=== PATIENT | male | born 1955 | race Caucasian/White ===

== ENCOUNTER → 2023-02-08 12:43 | Outpatient (CLI) | payer MEDICARE, SELFPAY ==
--- NOTE | ~2023-02-08 | XR_ITS ---
Clinical Indication: Cough PA and lateral views of the chest: Comparison: None Findings: The lungs are clear, without evidence of focal consolidation or pleural effusion. Cardiome diastinal silhouette is within normal limits. Bones and soft tissues are unremarkable. Impression: Normal chest. Reviewed, dictated and finalized at location . TARY PAY CLERK Impression: Normal chest.
== END ==
PROVIDERS: PCP Physician Assistant; Visit Provider Physician Assistant
DX: R05.9 Cough, unspecified (principal); R09.81 Nasal congestion
CPT/HCPCS: 71046

== ENCOUNTER 2024-12-20 08:18 | Outpatient (CLI) | payer MEDICARE, SELFPAY ==
--- NOTE | ~2024-12-20 | US_ITS ---
EXAMINATION: US art doppler giuseppe MEJIA DATE: 12/20/2024 09:11 INDICATION: Peripheral vascular disease TECHNIQUE: Segmental pressures and plethysmographic and Doppler waveforms of the brachial and lower extremity arteries were obtained. COMPARISON: None. FINDINGS: Right and left brachial artery pressures of 130 mm Hg and 130 mm Hg, respectively, are concordant (normal difference <= 30 mmHg). The right ankle-brachial index (CHASE) is 0.87 (normal >= 0.9-1). The right great toe-brachial index (TBI) is 0.68 (normal >= 0.6-0.8). The right lower extremity segmental pressure gradients are normal (normal gradients <= 20-30 mmHg between adjacent levels on the same leg or the same levels on the two legs). Arterial waveforms are biphasic with brisk systolic upstrokes throughout the arteries of the right lower limb. The left CHASE is 0.98. The left TBI is 0.57. The left lower extremity segmental pressure gradients are normal. Arterial waveforms are biphasic with brisk systolic upstrokes throughout the arteries of the left lower limb. IMPRESSION: 1. Mild arterial occlusive disease to bilateral lower limbs with mildly decreased bilateral ABIs and TBIs. Reviewed, dictated and finalized at location A. IMPRESSION: 1. Mild arterial occlusive disease to bilateral lower limbs with mildly decreas ed bilateral ABIs and TBIs.
--- OUTSIDE RECORDS SUMMARY | 2024-12-20 08:24 | XMS_ITS | Encounter Summary ---
Author Organization [facility] Healthcare Address [address] [place] [address] Care Team Providers Care Data Virtualization Consultant Name Role Phone Zenia Ruelas Primary Care Provider [phone] Jackie Golden MD Unavailable [phone] Raj Sylvester MD Unavailable [phone] Nidhi Shannon Unavailable [phone] Encounter Details Date Type Department Care Team (Late st Contact Info) Description 12/23/2021 Telephone [facility] Cardiac Oil Heater Installer [address] [place] [address] Tammy Apodaca, MONAE Social History Tobacco Use Types Packs/Day Years Used Date Smoking Tobacco: Never Smokeless Tobacco: Never Alcohol Use Standard Drinks/Week Comments Yes 0 (1 standard drink = 0.6 oz pur e alcohol) AUDIT-C Answer Date Recorded Q1: How often do you have a drink containing alc ohol? 2-4 times a month 11/04/2021 Q2: How many drinks containi ng alcohol do you have on a typical day when you are drinking? 1 or 2 11/04/2021 Q3: How often do you have si x or more drinks on one occasion? 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 Not on file Not on file documented as of this encounter Plan of Treatment Upcoming Encounters Date Type Department Care Team (Late st Contact Info) Description 05/01/2025 9:30 AM PRINTING SCREEN ASSEMBLER Hospital Encounter [facility] [address] [place] [address] Gabbie Sellers MD [address] [place] [address] [id number] 05/01/2025 9:30 AM PRINTING SCREEN ASSEMBLER - 05/01/2025 10:00 AM PRINTING SCREEN ASSEMBLER Surgery [facility] [address] [place] [address] Gabbie Sellers MD [address] [place] [phone] COLONOSCOPY Scheduled Procedures Name Priority Associated Diagnoses Date/Ti me COLONOSCOPY hx of polyps 05/01/2025 9:30 AM PRINTING SCREEN ASSEMBLER documented as of this encounter Visit Diagnoses Not on filedocumented in this encounter Care Teams Data Virtualization Consultant Relationship Specialty Start Date End Date Zenia Ruelas PA [address] [place] [address] PCP - General Internal Medicine 09/03/18 Jackie Golden MD [address] [place] [address] Referring Physician Internal Medicine 11/10/18 Raj Sylvester [place] [address] Consulting Physician Otolaryngology 07/08/22 Nidhi Shannon, DYLONE [address] [place] [address] [address] [place] [address] Psychologist Personnel 09/23/22 11/06/22 documented as of this encounter
--- OUTSIDE RECORDS SUMMARY | 2024-12-20 08:24 | XMS_ITS | Encounter Summary ---
Author Organization [facility] Care Team Providers Care Glass Belt Sander Name Role Phone Zenia Ruelas Primary Care Provider [phone] Jackie Golden MD Unavailable [phone] Raj Sylvester MD Unavailable [phone] Nidhi Shannon Unavailable [phone] Encounter Details Date Type Department Care Team (Latest Contact Info) Description 12/14/2016 Orders Only [facility]INCON[facility] Provider, MD Mando [address] [place], [place] [id number] Social History Tobacco Use Types Packs/Day Years Used Date Smoking Tobacco: Never Assessed Sex and Gender Information Value Date Recorded Sex Assigned at Not on file Legal Sex Male 12:26 AM ENGINE LATHE OPERATOR Gender Identity Not on file Sexual Orientation Not on file documented as of this encounter Plan of Treatment Upcoming Encounters Date Type Department Care Team (Late st Contact Info) Description 05/01/2025 9:30 AM ENGINE LATHE OPERATOR Hospital Encounter [facility] [address] [place] [address] Gabbie Sellers MD [address] [place] [id number] 05/01/2025 9:30 AM ENGINE LATHE OPERATOR - 05/01/2025 10:00 AM ENGINE LATHE OPERATOR Surgery [facility] [address] [place] [address] Gabbie Sellers MD [facility] [address] [address] COLONOSCOPY Scheduled Procedures Name Priority Associated Diagnoses Date/Ti me COLONOSCOPY hx of polyps 05/01/2025 9:30 AM ENGINE LATHE OPERATOR documented as of this encounter Procedures Procedure Name Priority Date/Time Associated Diagnosis Comments COLONOSCOPY - SCAN 05/02/2018 12 :00 AM ENGINE LATHE OPERATOR documented in this encounter Results * COLONOSCOPY - SCAN (05/02/2018 12:00 AM ENGINE LATHE OPERATOR) Narrative 05/02/2018 12:00 AM ENGINE LATHE OPERATOR Ordered by an unspecified provider. us Historical Provider Final Res ult documented in this encounter Visit Diagnoses Not on filedocumented in this encounter Care Teams Glass Belt Sander Relationship Specialty Start Date End Date Zenia Ruelas PA [address] [place] [address] PCP - General Internal Medicine 09/03/18 Jackie Golden MD [address] [place] [address] Referring Physician Internal Medicine 11/10/18 [place] [address] Consulting Physician Otolaryngology 07/08/22 Nidhi Shannon, DYLONE [address] [place] [address] [employer] Truck Driver 09/23/22 11/06/22 documented as of this encounter
--- OUTSIDE RECORDS SUMMARY | 2024-12-20 08:24 | XMS_ITS | Encounter Summary ---
Author Organization [facility] Address [address] [facility] [address] [place] [address] Phone Care Team Providers Care Insulation Batting Machine Operator Name Role Phone Zenia Ruelas Primary Care Provider [phone] Jackie Golden MD Unavailable [phone] Raj Sylvester MD Unavailable [phone] Encounter Details Date Type Department Care Team (Late st Contact Info) Description 12/10/2024 Results Follow-Up [facility] [facility] [address] [place] [address] Tyrese Rivera, WATER FILTER CLEANER [address] [facility] [phone] [place] [address] MRI Pelvis Prostate W WO Contrast Social History Tobacco Use Types Packs/Day Years Used Date Smoking Tobacco: Never Smokeless Tobacco: Never Alcohol Use Standard Drinks/Week Comments Yes 0 (1 standard drink = 0.6 oz pur e alcohol) AUDIT-C Answer Date Recorded Q1: How often do you have a drink containing alc ohol? Monthly or less 08/30/2024 Q2: How many drinks containi ng alcohol do you have on a typical day when you are drinking? 1 or 2 08/30/2024 Q3: How often do you have si x or more drinks on one occasion? Less than monthly 08/30/2024 PHQ-2 Answer Date Recorded PHQ-2 Total Score (If total score is 3 or more points, staff should administer the PHQ-9) 0 08/30/2024 Personal Safety Answer Date Recorded Have you ever been in or are you currently in a harmful physical or emotional relationship or is someone making you feel afraid or unsafe? 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 Not on file Not on file documented as of this encounter Plan of Treatment Upcoming Encounters Date Type Department Care Team (Late st Contact Info) Description 05/01/2025 9:30 AM AUTOMOTIVE MANUFACTURER Hospital Encounter [facility] [address] [place] [address] Gabbie Sellers MD [address] [place] [id number] 05/01/2025 9:30 AM AUTOMOTIVE MANUFACTURER - 05/01/2025 10:00 AM AUTOMOTIVE MANUFACTURER Surgery [facility] [address] [place] [address] Gabbie Sellers MD [address] [place] [address] [phone] COLONOSCOPY Scheduled Procedures Name Priority Associated Diagnoses Date/Ti me COLONOSCOPY hx of polyps 05/01/2025 9:30 AM AUTOMOTIVE MANUFACTURER documented as of this encounter Visit Diagnoses Not on filedocumented in this encounter Care Teams Insulation Batting Machine Operator Relationship Specialty Start Date End Date Zenia Ruelas PA [address] [place] [address] PCP - General Internal Medicine 09/03/18 Jackie Golden MD [address] [place] [address] Referring Physician Internal Medicine 11/10/18 [place] [address] Consulting Physician Otolaryngology 07/08/22 documented as of this encounter
--- OUTSIDE RECORDS SUMMARY | 2024-12-20 08:25 | XMS_ITS | Clinical Summary ---
Author Organization [facility] [address] [facility] Address [address] [place] [address] Care Team Providers Care Housekeeper Child Care Name Role Phone Zenia Ruelas Primary Care Provider [phone] Jackie Golden MD Unavailable [phone] Raj Sylvester MD Unavailable [phone] Allergies No known active allergies Medications pen needle, diabetic 31 gauge x 5/16 needle 0 Active FreeStyle Lite Strips strip USE 1 STRIP TO CHECK GLUCOSE THREE TIMES DAILY 1 Active FreeStyle Teresa 2 Sensor kit REPLACE EVERY 14 DAYS 2 Active empagliflozin (JARDIANCE) 25 mg tablet Take 1 tablet (25 mg total) by mouth nightly Active triamcinolone (KENALOG) 0.5 % cream Apply topically 3 (three) times a day 30 g 2 3 Active turmeric root extract 500 mg capsule Take by mouth Active vitamin E 400 unit capsule Take 1 capsule (400 Units total) by mouth Active cholecalciferol (VITAMIN D-3) 2000 unit tablet Active zinc sulfate 50 mg zinc (220 mg) tablet Take 1 tablet (220 mg total) by mouth daily Active omega-3 fatty acids-fish oil 300-1,000 mg capsule Take 2 capsules (2 g total) by mouth daily Active albuterol HFA (PROVENTIL HFA,VENTOLIN HFA,PROAIR HFA) 90 mcg/actuation inhaler Inhale 2 puffs every 6 (six) hours as needed for wheezing 1 each 3 Active metoprolol XL (TOPROL-XL) 25 mg extended release tabletIndications: Persistent atrial fibrillation (HCC),Other fatigue,BMI 40.0-44.9, adult (HCC),Type 2 diabetes mellitus with hyperglycemia, with long-term current use of insulin (HCC),Localized edema,COVID-19 Take 1 tablet (25 mg total) by mouth daily 90 tablet 4 Active rivaroxaban (Xarelto) 20 mg tabletIndications: Persistent atrial fibrillation (HCC) Take 1 tablet (20 mg total) by mouth daily 90 tablet 4 Active losartan (COZAAR) 25 mg tabletIndications: Type 2 diabetes mellitus with hyperglycemia, with long-term current use of insulin (HCC) TAKE 1 TABLET(25 MG) BY MOUTH DAILY 90 tablet 1 4 Active ascorbic acid, vitamin C, (VITAMIN C) 500 mg CR tablet Take 1 tablet (500 mg total) by mouth every other day Active semaglutide (Ozempic) 1 mg/dose (4 mg/3 mL) pen injector injection Inject 1 mg under the skin Active omeprazole (PriLOSEC) 40 mg capsule Take 1 capsule (40 mg total) by mouth daily 30 capsule 11 5 026 Active FreeStyle Teresa 3 Plus Sensor device CHANGE EVERY 15 DAYS 5 Active FreeStyle Teresa 3 [place] misc USE TO MONITOR BLOOD SUGAR 5 Active insulin lispro (HumaLOG) 100 unit/mL pen for injection ADMINISTER 6 UNITS UNDER THE SKIN THREE TIMES DAILY BEFORE MEALS Active metFORMIN (GLUCOPHAGE) 1,000 mg tablet Take 1 tablet (1,000 mg total) by mouth 5 Active tamsulosin (FLOMAX) 0.4 mg extended release capsule Take 1 capsule (0.4 mg total) by mouth daily 90 capsule 3 5 026 Active rosuvastatin (CRESTOR) 10 mg tabletIndications: Type 2 diabetes mellitus with hyperlipidemia (HCC) TAKE 1 TABLET(10 MG) BY MOUTH DAILY 100 tablet 1 5 Active furosemide (LASIX) 20 mg tabletIndications: Persistent atrial fibrillation (HCC) TAKE 1 TABLET(20 MG) BY MOUTH DAILY 100 tablet 1 5 Active Active Problems Problem Noted Date Diagnosed Date Non-ischemic cardiomyopathy 09/08/2024 Medicare annual wellness visit, subsequent 03/10 Assessment & Plan (03/10/2024 8:01 PM HAT MENDER): Encouraged healthy lifestyle, good nutrition and exercise. Encouraged Calcium and Vitamin D and weight bearing exercise for bone health. Reviewed immunizations. Reviewed age appropirate screenings. Medicare Wellness Documentation is completed within the chart Morbid obesity 03/10/2024 Assessment & Plan (08/30/2024 6:57 AM CDT): Discussed the patient's BMI. The BMI is above average. BMI management plan is completed. BMI Follow-up includes: nutrition counseling, exercise counseling and education provided. Assessment & Plan (03/10/2024 8:00 PM HAT MENDER): Discussed the patient's BMI. The BMI is above average. BMI management plan is completed. BMI Follow-up includes: nutrition counseling, exercise counseling and education provided. Permanent atrial fibrillation 04/17/2023 Assessment & Plan (03/10/2024 7:59 PM HAT MENDER): Patient has atrial fibrillation. Follows with Dr. Aguilar Is on Xarelto and metoprolol for rate control. History of CHF. He is also on losartan and daily Lasix and seems to be compensated. Assessment & Plan (07/17/2023 12:46 PM CDT): Continue per Cardiology. Continue anticoagulation with Xarelto and metoprolol XL 25 for rate control Chronic combined systolic an d diastolic congestive heart failure 04/17/2023 Assessment & Plan (03/10/2024 7:59 PM HAT MENDER): Patient has atrial fibrillation. Follows with Dr. Aguilar Is on Xarelto and metoprolol for rate control. History of CHF. He is also on losartan and daily Lasix and seems to be compensated. Assessment & Plan (07/17/2023 12:46 PM CDT): Continue per Dr. Aguilar. He appears compensated today. Continue to manage blood pressure with losartan 25 metoprolol XL 25. Continue to monitor for weight gain and if has more than 3-5 lb he is to call for further evaluation Anticoagulation management encounter 02/07/2023 Assessment & Plan (02/07/2023 10:57 PM HAT MENDER): Encouraged healthy lifestyle, good nutrition and exercise. Encouraged Calcium and Vitamin D and weight bearing exercise for bone health. Reviewed immunizations. Reviewed age appropirate screenings. Medicare Wellness Documentation is completed within the chart BMI 39.0-39.9,adult 01/20/2023 Assessment & Plan (08/30/2024 6:58 AM CDT): Discussed the patient's BMI. The BMI is above average. BMI management plan is completed. BMI Follow-up includes: nutrition counseling, exercise counseling and education provided. LA thrombus 10/14/2022 Chronic eczematous otitis externa of left ear Assessment & Plan (07/17/2023 12:45 PM CDT): Continue with drops as indicated by ENT Assessment & Plan (08/09/2022 6:55 PM CDT): I think he would benefit from using Kenalog cream in his left ear every night. That should allow him to have less inflammation and swelling. I also recommend that he stop using Q-tips because that is only aggravating this situation. He does have eczema I explained. It is a chronic condition and probably will never completely go away. He understands that. I also felt he go ahead and start wearing his hearing aids any time. He will see me if he has any further problems. DELVIS (obstructive sleep apnea) 12/03/2021 Assessment & Plan (07/01/2024 8:57 AM CDT): Patient continue to wear his CPAP at 14 cm water pressure while sleeping. His DME is [facility] Assessment & Plan (03/10/2024 7:59 PM HAT MENDER): Continue CPAP. States has all needed supplies. Managed by Dr. Nash Assessment & Plan (07/17/2023 12:45 PM CDT): Continue with CPAP per Dr. Nash Assessment & Plan (06/23/2023 9:53 AM CDT): Due to continued symptoms, the patient will continue CPAP at 14 cm water pressure. Denied need for supplies. DME [facility] Assessment & Plan (02/07/2023 10:57 PM HAT MENDER): Continue per Dr. Nash. Continue CPAP nightly Assessment & Plan (07/09/2022 9:24 PM CDT): Continue per Dr. Nash. Continue with CPAP. Has needed supplies Assessment & Plan (06/24/2022 9:09 AM CDT): The patient will continue with CPAP therapy at 14 cm of water pressure. Denied need for supplies. DME [employer] Assessment & Plan (02/06/2022 9:52 PM HAT MENDER): Continue per Dr. Nash. Using his CPAP. Settings were adjusted and seems to be doing better Assessment & Plan (12/30/2021 1:40 PM CDT): Due to the slightly high AHI and the patient stating he does not have enough pressure in her machine, I have increased the pressure to 14 cm water pressure. Denied need for supplies. [facility]NA [facility] Abnormal stress test 10/22/2021 Colon adenoma 08/30/2021 Assessment & Plan (07/17/2023 12:45 PM CDT): Last colonoscopy was in March [address] Sellers. More adenomas were noted so patient states will need to repeat in mid 2024 Assessment & Plan (07/09/2022 9:23 PM CDT): Patient with history of adenomas. Due to repeat colonoscopy. Has already met with Dr. Sellers. Needs to call her office to get rescheduled. Assessment & Plan (08/30/2021 11:42 AM CDT): Last colonoscopy was in [address] Angel. Had a colon adenoma so is due to repeat in 2021. Prefers to keeping the [facility] system so will refer to Dr. Sellers so this can be done at [facility] Chronic midline low back pain without sciatica 0 08/30/2021 Assessment & Plan (08/30/2021 12:11 PM CDT): Encouraged Tylenol as he is on AC for Afib Topical preparations like Lidocaine patches, Biofreeze, ICYHOT etc as needed. Heat, stretching Avoid long periods of sitting/laying. Encouraged PT but he declines due to cost. Followup if has any problems controlling bowels or bladder or if sxs worsen. History of COVID-19 07/04/2020 Overview (07/04/2020): Positive approx 06/08 by a test done by his daughter as she is a pathology laboratory aides teacher. Assessment & Plan (07/04/2020 10:44 PM CDT): Patient positive COVID so should quarantine for 10 days since onset of sxs. Stressed him going to work, even masked is not following CDC guidelines and can increase his rate of transmission to coworkers/others. Treat sxs with Tylenol, Cough/cold medication otc and add VitD 5,000IU daily and Zinc 50mg daily. Monitor sxs and call or go to the ER if has any of the following: --trouble breathing --persistent pain or pressure in the chest --new confusion --inability to wake or stay awake -- bluish lips or face If patient has been in close contact with anyone, they should be notified and instructed to quarantine per CDC guidelines for 14 days after last exposure to the positive COVID patient and monitor closely for symptoms of COVID. If they appear they should be tested. Close contact includes: --You were within 6 feet of someone who has COVID-19 for a total of 15 minutes or more --You provided care at home to someone who is sick with COVID-19 --You had direct physical contact with the person (hugged or kissed them) --You shared eating or drinking utensils --They sneezed, coughed, or somehow got respiratory droplets on you Additional Steps to avoid exposure/spread include: Avoid crowded places where close contact with others may occur, such as shopping centers, movie theaters, dormitories, or stadiums. Avoid transit where close contact with others may occur, such as planes, trains, and buses. Maintain a distance of approximately 6 feet from other people whenever possible (spacing out if you are in a line, leaving 2 seats in between others at a waiting room when possible). Wash your hands with soap and water often. If needed, use a hand telecommunications project manager that contains at least 60% alcohol. Clean and disinfect frequently touched surfaces such as tables, doorknobs, countertops, etc daily. Avoid touching your eyes, nose, and mouth when possible. Seasonal allergies 05/23/2020 Assessment & Plan (08/30/2021 12:11 PM CDT): Continue flonase and prn antihhistamine Assessment & Plan (05/23/2020 8:41 PM HAT MENDER): STOP Afrin. Use Flonase, antihistamine and mucinex prn. Type 2 diabetes mellitus with hyperlipidemia 01/2020 Assessment & Plan (03/10/2024 7:58 PM HAT MENDER): Stressed importance of continued A1c control to minimize the terminal system operator effects of diabetes. Bring accuchecks to office when instructed to do so. Check A1c about every 3-6 months. Take medication as prescribed. Get annual eye exam. Encouraged ILIA/Statin if able to tolerate. Encouraged weight control and encouraged diabetic diet and exercise. Encouraged patient to follow low fat/low chol diet like the Mediterranean diet. Increase good fats in the diet. Increase exercise. Monitor labs as needed. Diabetes is managed by adobe maker -- [facility] Currently on metformin Jardidean Vaughan and Humalog. Will request labs from [facility] so we can make it part of his record here. Continue Crestor 10 Assessment & Plan (07/17/2023 12:45 PM CDT): Stressed importance of continued A1c control to minimize the terminal system operator effects of diabetes. Bring accuchecks to office when instructed to do so. Check A1c about every 3-6 months. Take medication as prescribed. Get annual eye exam. Encouraged ILIA/Statin if able to tolerate. Encouraged weight control and encouraged diabetic diet and exercise. Encouraged patient to follow low fat/low chol diet like the Mediterranean diet. Increase good fats in the diet. Increase exercise. Monitor labs as needed. Continue per endocrinology at [facility]. Assessment & Plan (02/07/2023 10:54 PM HAT MENDER): Encouraged patient to follow low fat/low chol diet like the Mediterranean diet. Increase good fats in the diet. Increase exercise. Monitor labs as needed. Continue Crestor 10 Assessment & Plan (07/09/2022 9:23 PM CDT): Encouraged patient to follow low fat/low chol diet like the Mediterranean diet. Increase good fats in the diet. Increase exercise. Monitor labs as needed. Continue statin Assessment & Plan (02/06/2022 9:50 PM HAT MENDER): Encouraged patient to follow low fat/low chol diet like the Mediterranean diet. Increase good fats in the diet. Increase exercise. Monitor labs as needed. Continue Crestor 10 Assessment & Plan (08/30/2021 11:29 AM CDT): Encouraged patient to follow low fat/low chol diet like the Mediterranean diet. Increase good fats in the diet. Increase exercise. Monitor labs as needed. Continue Crestor Assessment & Plan (07/17/2021 2:06 PM CDT): Encouraged patient to follow low fat/low chol diet like the Mediterranean diet. Increase good fats in the diet. Increase exercise. Monitor labs as needed. Continue crestor Assessment & Plan (05/28/2021 11:19 PM CDT): Encouraged patient to follow low fat/low chol diet like the Mediterranean diet. Increase good fats in the diet. Increase exercise. Monitor labs as needed. Continue Crestor Assessment & Plan (11/23/2020 10:54 AM CDT): Encouraged patient to follow fat/low chol diet like the Mediterranean diet. Increase good fats in the diet. Increase exercise. Monitor labs as needed. Continue statin Assessment & Plan (05/23/2020 8:36 PM HAT MENDER): Encouraged patient to follow fat/low chol diet like the Mediterranean diet. Increase good fats in the diet. Increase exercise. Monitor labs as needed. Continue with crestor Assessment & Plan (11/22/2019 6:38 PM CDT): Encouraged patient to continue low fat/low chol diet. Continue exercise. Increase good fats in the diet. Monitor labs as needed. Continue crestor Tinea pedis 11/10/2018 Elevated PSA 11/10/2018 Overview (11/10/2018): Referred to Dr. Alexander in 08/2017. Instructed to repeat the PSA and if elevated a second time, will need biospy Assessment & Plan (03/10/2024 7:58 PM HAT MENDER): Patient with a history of elevated PSA. He had been following with but has chosen to not follow-up because he was not happy with the idea of having to have a TURP. Strongly encouraged him to follow-up and discussed concerns with Assessment & Plan (07/17/2023 12:44 PM CDT): Encouraged to continue following with Dr. Alexander at [facility]. Advised and elevated PSA can be connected to cancer and we do not want to just ignore this. Also advised with his BPH he could get to the point where he is unable to urinate and if that would happen he would need to go to the ER. He verbalizes understanding Assessment & Plan (07/09/2022 9:23 PM CDT): Strongly encouraged him to continue to follow with Dr. Alexander, urology. Encouraged to follow as this is the only way to know if there is any type of progression towards cancer versus other etiology. Assessment & Plan (08/30/2021 11:29 AM CDT): Request records from Dr. Alexander as patient states he no longer needs follow-up and has had elevated PSA. Assessment & Plan (05/23/2020 8:40 PM HAT MENDER): Continue per Dr. Alexander. Assessment & Plan (01/20/2020 8:13 AM HAT MENDER): Referred to Dr. Alexander in 08/2017. Instructed to repeat the PSA and if elevated a second time, will need biospy Was elevated in 2018 and instructed to return to Dr. Alexander but patient never followed up. Will provide order to recheck the PSA again and my staff will make appointment for him with Dr. Alexander (02/19 at 10:15). I cc:ed Dr. Alexander with the [facility] results. Reviewed with patient the importance of keeping this followup to determine the cause of his sxs/elevated PSA which could be a cancer and the not keeping appointments can delay the diagnosis and contribute to a poor/er outcome. Assessment & Plan (05/19/2019 3:06 PM CDT): Provided Dr. Alexander name again for him to contact to followup. Reviewed importance of followup to make definitive dx/treatment plan. Assessment & Plan (11/18/2018 11:38 PM CDT): This is a significant, separately identifiable problem that was evaluated and managed on the same day as the wellness exam Recheck PSA and if still elevated. Return back to Dr. Alexander. Metabolic syndrome 05/25/2018 Assessment & Plan (05/19/2019 3:04 PM CDT): DM managed by Endocrine. Stressed importance of managing all aspects of the metaboilic syndrome including DM, HTN, obesity, DELVIS, vit D, DELVIS, lipids etc. Assessment & Plan (11/18/2018 11:35 PM CDT): Encouraged to control all the comorbidities Candidate for statin therapy due to risk of future cardiovascular event 04/17/2017 Assessment & Plan (11/23/2020 10:53 AM CDT): Continue statin. Encouraged patient to follow fat/low chol diet like the Mediterranean diet. Increase good fats in the diet. Increase exercise. Monitor labs as needed. Assessment & Plan (05/23/2020 8:37 PM HAT MENDER): Continue crestor Assessment & Plan (11/18/2018 11:35 PM CDT): Continue Crestor. Tolerating well. Encouraged patient to continue low fat/low chol diet. Continue exercise. Increase good fats in the diet. Monitor labs as needed. Other chronic pain 03/07/2017 Decreased hearing 03/07/2017 Assessment & Plan (11/22/2019 6:38 PM CDT): Continue per audiology regarding hearing aids Assessment & Plan (11/18/2018 11:34 PM CDT): No change Resolved Problems Problem Noted Date Diagnosed Date Resolved Date BMI 40.0-44.9, adult 03/01/2024 025 Assessment & Plan (03/01/2024 8:44 AM HAT MENDER): Discussed the patient's BMI. The BMI is above average. BMI management plan is completed. BMI Follow-up includes: nutrition counseling, exercise counseling and education provided. Viral upper respiratory tract infection 02/07/2023 07/17/2023 Assessment & Plan (02/07/2023 10:54 PM HAT MENDER): Encouraged supportive care. Push fluids. Rest. Reviewed that most viral conditions may have sxs that last for 10-14 days. If sxs worsen or don\'t fully resolve, pt is to followup in the office. Impacted cerumen of left ear 08/09/2022 07/17/2023 Assessment & Plan (08/09/2022 6:54 PM CDT): This was removed without Difficulty and he tolerated it without any problems. Will see as needed for this. I told him to avoid Q-tips. Obesity, morbid, BMI 40.0-49.9 07/08/2022 03/10/2024 Assessment & Plan (03/01/2024 8:44 AM HAT MENDER): Discussed the patient's BMI. The BMI is above average. BMI management plan is completed. BMI Follow-up includes: nutrition counseling, exercise counseling and education provided. Assessment & Plan (07/17/2023 12:46 PM CDT): Discussed the patient's BMI. The BMI is above average. BMI management plan is completed. BMI Follow-up includes: nutrition counseling, exercise counseling and education provided. Assessment & Plan (01/20/2023 8:23 AM HAT MENDER): Discussed the patient's BMI. The BMI is above average. BMI management plan is completed. BMI Follow-up includes: nutrition counseling, exercise counseling and education provided. Assessment & Plan (07/08/2022 8:08 AM CDT): Discussed the patient's BMI. The BMI is above average. BMI management plan is completed. BMI Follow-up includes: nutrition counseling, exercise counseling and education provided. Morbid obesity 07/08/2022 07/17/2023 Assessment & Plan (01/20/2023 8:23 AM HAT MENDER): Discussed the patient's BMI. The BMI is above average. BMI management plan is completed. BMI Follow-up includes: nutrition counseling, exercise counseling and education provided. Assessment & Plan (07/08/2022 8:08 AM CDT): Discussed the patient's BMI. The BMI is above average. BMI management plan is completed. BMI Follow-up includes: nutrition counseling, exercise counseling and education provided. Preop cardiovascular exam 02/06/2022 Assessment & Plan (02/06/2022 9:52 PM HAT MENDER): Encouraged healthy lifestyle, good nutrition and exercise. Encouraged Calcium and Vitamin D and weight bearing exercise for bone health. Reviewed immunizations. Reviewed age appropirate screenings. Medicare Wellness Documentation is completed within the chart JONES (dyspnea on exertion) 10/22/2021 Morbid obesity with BMI of 45.0-49.9, adult 08/30/2021 01/03/2022 Assessment & Plan (08/30/2021 11:42 AM CDT): Obesity is unchanged. Discussed the patient's BMI. The BMI is above average. BMI management plan is completed. BMI Follow-up includes: nutrition counseling, exercise counseling and education provided. Hypersomnia, unspecified 07/19/2021 Assessment & Plan (07/19/2021 9:37 AM CDT): I did order a nocturnal polysomnogram split night protocol if necessary, no MSLT. BMI 40.0-44.9, adult 06/28/2021 022 Assessment & Plan (06/28/2021 1:02 PM CDT): Obesity is unchanged. Discussed the patient's BMI. The BMI is above average. BMI management plan is completed. BMI Follow-up includes: nutrition counseling, exercise counseling and education provided. Morbid obesity with BMI of 40.0-44.9, adult 06/28/2021 08/30/2021 Assessment & Plan (06/28/2021 1:02 PM CDT): Obesity is unchanged. Discussed the patient's BMI. The BMI is above average. BMI management plan is completed. BMI Follow-up includes: nutrition counseling, exercise counseling and education provided. Localized edema 06/15/2021 03/10/2024 COVID-19 06/15/2021 07/17/2021 Lesion of nose 05/28/2021 07/17/2023 Assessment & Plan (05/28/2021 11:20 PM CDT): Patient has noted a lesion on the right Nare. It continues to grow. Will refer to plastics for excision. Persistent atrial fibrillation 05/28/2021 07/17/2023 Overview (05/28/2021): Dx in office 05/28/2021 Assessment & Plan (02/07/2023 10:56 PM HAT MENDER): Continue per Dr. Aguilar Continue losartan, metoprolol XL 25 daily, Xarelto 20 and Lasix 20 Assessment & Plan (02/06/2022 9:52 PM HAT MENDER): AFib is managed by Cardiology Dr Aguilar He is still working with Dr. Aguilar for workup as his daughter was an accident and some of the work up has been delayed. He is on Xarelto and tolerating without any s/s active bleeding Assessment & Plan (08/30/2021 11:37 AM CDT): Continue per Dr. Aguilar. He is continuing the workup with the AFib. Has a nuclear stress test scheduled. Patient states he was switched from Eliquis to Xarelto and understands not to take both. Assessment & Plan (07/17/2021 2:05 PM CDT): Continue per . Sounds like he is awaiting Holter monitor. Tolerating the Eliquis and metoprolol without any problem. Assessment & Plan (05/28/2021 11:28 PM CDT): Patient diagnosed today with new onset AFib. He is not in rapid ventricular rate. He was not even aware that his rhythm was out of sync. He is been a little more anxious but denies any chest pain shortness of breath or changes in activity levels. Denies any stroke symptoms states he has never had a diagnosis of AFib or arrhythmia. Discussed with patient at length AFib, the anatomy and physiology behind it and the importance of treatment options both for for prevention of stroke as well as treatment of the AFib. Stressed the importance of having sleep apnea evaluated and treated if present. His CHADSvasc score;3 points Stroke risk was 3.2% per year so he would benefit from starting an anticoagulant. He is to stop the aspirin. Start Eliquis 5 mg b.i.d.. Contacted his pharmacy to determine coverage. Was told he has $400 dollar pharmacy deductable that will have to be met and then his medications will be approximately 40 dollars a month. Reviewed this with patient and let him know that any medicine will have the deductible but this Eliquis versus Coumadin he will not have to worry about blood draws. He is in favor of it. 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 Reviewed with him the risks benefits alternatives side effects and proper use. Review to monitor for any signs or symptoms of bleeding including dizziness bleeding from the gums from the nose from the bowels or bladder. He is to call immediately if he notes any of these. Patient is to follow up with Cardiology. Appointment made for him in the next couple of weeks. If he has any exacerbation of any of his symptoms or starts to notice chest pain shortness of breath dyspnea on exertion, HR sustained over 120 (taught him how to check his pulse) or syncope is to go to the ER immediately. Irregular heart beat 05/28/2021 022 Assessment & Plan (05/28/2021 11:25 PM CDT): Irregular heartbeat noted in the office today. EKG confirmed AFib. See AFib for plan BMI 40.0-44.9, adult 11/23/2020 023 Assessment & Plan (01/03/2022 8:49 AM CDT): Discussed the patient's BMI. The BMI is above average. BMI management plan is completed. BMI Follow-up includes: nutrition counseling, exercise counseling and education provided. Assessment & Plan (05/28/2021 9:41 AM CDT): Obesity is unchanged. Discussed the patient's BMI. The BMI is above average. BMI management plan is completed. BMI Follow-up includes: nutrition counseling, exercise counseling and education provided. Assessment & Plan (11/23/2020 8:38 AM CDT): Obesity is unchanged. Discussed the patient's BMI. The BMI is above average. BMI management plan is completed. BMI Follow-up includes: nutrition counseling, exercise counseling and education provided. Morbid obesity 11/23/2020 07/08/2022 Assessment & Plan (01/03/2022 8:49 AM CDT): Discussed the patient's BMI. The BMI is above average. BMI management plan is completed. BMI Follow-up includes: nutrition counseling, exercise counseling and education provided. Assessment & Plan (05/28/2021 9:41 AM CDT): Obesity is unchanged. Discussed the patient's BMI. The BMI is above average. BMI management plan is completed. BMI Follow-up includes: nutrition counseling, exercise counseling and education provided. Assessment & Plan (11/23/2020 8:38 AM CDT): Obesity is unchanged. Discussed the patient's BMI. The BMI is above average. BMI management plan is completed. BMI Follow-up includes: nutrition counseling, exercise counseling and education provided. Medicare annual wellness visit, initial 11/23/2020 05/28/2021 Assessment & Plan (11/23/2020 10:55 AM CDT): Encouraged healthy lifestyle, good nutrition and exercise. Encouraged Calcium and Vitamin D and weight bearing exercise for bone health. Reviewed immunizations. Reviewed age appropirate screenings. Medicare Wellness Documentation is completed within the chart Need for 23-polyvalent pneum ococcal polysaccharide vaccine 11/23/2020 05/28/2021 Assessment & Plan (11/23/2020 10:55 AM CDT): Updated in office today Fatigue 05/23/2020 07/17/2023 Assessment & Plan (05/23/2020 8:38 PM HAT MENDER): Probably multifactorial. Check labs and followup to re-evaluate Morbid obesity with BMI of 4 0.0-44.9, adult ([facility]) 05/22/2020 11/23/2020 Assessment & Plan (05/22/2020 10:09 AM HAT MENDER): Obesity is unchanged. Discussed the patient's BMI. The BMI is above average. BMI management plan is completed. BMI Follow-up includes: nutrition counseling, exercise counseling and education provided. Left ear pain 01/20/2020 07/17/2023 Assessment & Plan (01/20/2020 8:07 AM HAT MENDER): Exam today was benign. TM normal appearing and canal without cerumen. He has the sensation of irritation today after wearing the hearing aid, but I don't appreciate an abnormality. His hearing is poor so he needs to wear the aids daily but is limited by these sxs. Recommend referral to ENT. Instructed to bring his hearing aids with him to the visit. Influenza vaccine refused 01/20/2020 Assessment & Plan (01/20/2020 8:15 AM HAT MENDER): Encouraged vaccine. Reviewed risks/ benefits. Patient refuses and accepts risks. Otitis of left ear 11/22/2019 0 Assessment & Plan (01/06/2020 12:13 PM CDT): Advised antibiotic and flonase x 7 days Advised f/u in 1w if not improving, sooner if worsening Assessment & Plan (11/22/2019 6:37 PM CDT): Start Amoxil. Stop putting hairpins, etc in ear as may cause permanent damage. Followup with stonecutter hand to determine fit of his hearing aids. Welcome to Medicare preventive visit 11/22/2019 01/20/2020 Assessment & Plan (11/22/2019 6:39 PM CDT): Encouraged healthy lifestyle, good nutrition and exercise. Encouraged Calcium and Vitamin D and weight bearing exercise for bone health. Reviewed immunizations. Reviewed age appropirate screenings. Medicare Wellness Documentation is completed within the chart Need for vaccination with 13 -polyvalent pneumococcal conjugate vaccine 05/19/2019 0 Assessment & Plan (05/19/2019 3:08 PM CDT): Updated in office today Other fatigue 05/19/2019 07/17/2023 Assessment & Plan (07/09/2022 9:23 PM CDT): Probably multifactorial. Check labs and followup to re-evaluate Assessment & Plan (05/19/2019 3:08 PM CDT): Probably multifactorial. Check labs and followup to re-evaluate Annual physical exam 11/14/2018 020 Assessment & Plan (11/18/2018 11:35 PM CDT): Encouraged healthy lifestyle, good nutrition and exercise. Encouraged Calcium and Vitamin D and weight bearing exercise for bone health. Reviewed immunizations Reviewed age appropirate screenings. Type 2 diabetes mellitus wit hout complication, with long-term current use of insulin 11/10/2018 07/17/2023 Assessment & Plan (02/07/2023 10:56 PM HAT MENDER): Stressed importance of continued A1c control to minimize the intermediate effects of diabetes. Bring accuchecks to office when instructed to do so. Check A1c about every 3-6 months. Take medication as prescribed. Get annual eye exam. Encouraged ILIA/Statin if able to tolerate. Encouraged weight control and encouraged diabetic diet and exercise. Continue per endocrinology at [facility] Assessment & Plan (07/09/2022 9:22 PM CDT): Managed by Tess Wadsworth NP [facility] [phone] Request labs and notes to confirm control. Stressed importance of continued A1c control to minimize the intermediate effects of diabetes. Bring accuchecks to office when instructed to do so. Check A1c about every 3-6 months. Take medication as prescribed. Get annual eye exam. Encouraged ILIA/Statin if able to tolerate. Encouraged weight control and encouraged diabetic diet and exercise. Assessment & Plan (02/06/2022 9:50 PM HAT MENDER): Stressed importance of continued A1c control to minimize the intermediate effects of diabetes. Bring accuchecks to office when instructed to do so. Check A1c about every 3-6 months. Take medication as prescribed. Get annual eye exam. Encouraged ILIA/Statin if able to tolerate. Encouraged weight control and encouraged diabetic diet and exercise. Managed by endocrinology at the [facility] A1c by his this history in December was 8.4 so still not fully controlled has follow-up scheduled with the adobe maker in the next few months Assessment & Plan (08/30/2021 11:29 AM CDT): Continue management with Endocrinology. He follows with the group at [facility] so I do not have labs. Assessment & Plan (07/17/2021 2:04 PM CDT): Continue per Dr. Burton Endocrinology. Per his continuous glucose monitor it seems as though his A1c is getting closer to goal. Assessment & Plan (05/28/2021 11:19 PM CDT): Continue per Dr. butts, Endocrinology. Assessment & Plan (11/23/2020 10:54 AM CDT): Managed by Dr. Mchugh, Endocrinology. Stressed he is not at goal. Reviewed CV benefit of the Trulicity and encouraged to consider. Followup closely with Endo. Assessment & Plan (05/23/2020 8:36 PM HAT MENDER): Managed by Dr. Mchugh/Janine MAYA Endocrinology Assessment & Plan (11/22/2019 6:38 PM CDT): Continue per Endocrinology Assessment & Plan (05/19/2019 3:03 PM CDT): Managed by ZULMA Perry Endocrine Assessment & Plan (11/18/2018 11:35 PM CDT): Stressed importance of continued A1c control to minimize the terminal system operator effects of diabetes. Bring accuchecks to office when instructed to do so. Check A1c about every 3-6 months. Take medication as prescribed. Get annual eye exam. Encouraged ILIA/Statin if able to tolerate. Encouraged weight control and encouraged diabetic diet and exercise. Managed by Dr. Claros/Endocrine Microalbuminuria due to type 2 diabetes mellitus 11/10/2018 09/08/2024 Assessment & Plan (03/10/2024 7:57 PM HAT MENDER): Encouraged tight control of diabetes. Will continue monitor closely. Diabetes is managed by adobe maker -- [facility] Assessment & Plan (02/07/2023 10:55 PM HAT MENDER): Continue tight control of diabetes and monitor microalbumin. He is on Jardiance 25 Assessment & Plan (11/18/2018 11:35 PM CDT): Encouraged tighter control of his DM to avoid terminal system operator sequela. On ARB. History of adenomatous polyp of colon 11/10/2018 08/30/2021 Overview (11/10/2018): 12/2016 - Dr. Angel --Tubular Adenoma (8mm)--->12/2019 Assessment & Plan (05/19/2019 3:05 PM CDT): Due to repeat in 12/2021 Assessment & Plan (11/18/2018 11:36 PM CDT): Due to repeat colonsocopy in 12/2019 Daytime sleepiness 05/25/2018 3 Overview (01/06/2020): Referred to Pulmonary. Await recommendation/sleep study Assessment & Plan (08/30/2021 11:29 AM CDT): Awaiting sleep study for recommendations Assessment & Plan (07/17/2021 2:05 PM CDT): Strongly encouraged him to follow through with the sleep study. Reviewed again that untreated undertreated or undiagnosed sleep apnea can lead to long-term sequela not limited to , exacerbation of his chronic concerns including the AFib. Assessment & Plan (05/28/2021 11:18 PM CDT): Will refer to jasmine, Dr. Nash for evaluation of probable sleep apnea. Discussed with patient at length the connection between sleep apnea and AFib. Stressed the importance of having this evaluation done and being treated for sleep apnea as a will continue to contribute to multiple health concerns not just sleep concerns. Assessment & Plan (05/19/2019 3:08 PM CDT): Suspicion for DELVIS. Pt is refusing to followup as won't consider CPAP. Reviewed dental device and he still is not interested in followup with Pulmonary Assessment & Plan (11/18/2018 11:37 PM CDT): This is a significant, separately identifiable problem that was evaluated and managed on the same day as the wellness exam Refer to [facility] Sleep labs for workup terminal system operator current use of insulin 03/07/2017 09/08/2024 Assessment & Plan (03/10/2024 7:56 PM HAT MENDER): Patient is on insulin managed by adobe maker -- [facility] Assessment & Plan (07/17/2023 12:46 PM CDT): Continue per Endocrinology Assessment & Plan (07/09/2022 9:22 PM CDT): Continue insulin per Endocrinology Assessment & Plan (02/06/2022 9:50 PM HAT MENDER): Continue per Endocrinology Assessment & Plan (05/28/2021 11:19 PM CDT): Patient is on insulin managed by Dr. butts. Assessment & Plan (11/23/2020 10:53 AM CDT): Endocrine manages. Stressed importance of better control Assessment & Plan (05/23/2020 8:38 PM HAT MENDER): Managed by Endocrinology Assessment & Plan (11/22/2019 6:39 PM CDT): Continue per endocrine Assessment & Plan (11/18/2018 11:36 PM CDT): Managed by Dr. Claros. Morbid (severe) obesity due to excess calories 03/07/2017 11/23/2020 Assessment & Plan (01/20/2020 8:07 AM HAT MENDER): Obesity is unchanged. Discussed the patient's BMI. The BMI is above average. BMI management plan is completed. BMI Follow-up includes: nutrition counseling, exercise counseling and education provided. Assessment & Plan (05/16/2019 9:47 AM HAT MENDER): Obesity is unchanged. Discussed the patient's BMI. The BMI is above average. BMI management plan is completed. BMI Follow-up includes: nutrition counseling, exercise counseling and education provided. Assessment & Plan (11/18/2018 11:34 PM CDT): Obesity is unchanged. Discussed the patient's BMI. The BMI is above average. BMI management plan is completed. BMI Follow-up includes: nutrition counseling, exercise counseling and education provided. BMI 45.0-49.9, adult 03/07/2017 021 Assessment & Plan (01/20/2020 8:14 AM HAT MENDER): Obesity is unchanged. Discussed the patient's BMI. The BMI is above average. BMI management plan is completed. BMI Follow-up includes: nutrition counseling, exercise counseling and education provided. Assessment & Plan (11/22/2019 6:38 PM CDT): Obesity is unchanged. Discussed the patient's BMI. The BMI is above average. BMI management plan is completed. BMI Follow-up includes: nutrition counseling, exercise counseling and education provided. Assessment & Plan (05/16/2019 9:47 AM HAT MENDER): Obesity is unchanged. Discussed the patient's BMI. The BMI is above average. BMI management plan is completed. BMI Follow-up includes: nutrition counseling, exercise counseling and education provided. Assessment & Plan (11/18/2018 11:34 PM CDT): Obesity is unchanged. Discussed the patient's BMI. The BMI is above average. BMI management plan is completed. BMI Follow-up includes: nutrition counseling, exercise counseling and education provided. Type 2 diabetes mellitus with hyperglycemia 03/07/2017 11/23/2020 Encounters Date Type Department Care Team Description 12/10/2024 Results Follow-Up [facility] Surgery [address] [place] [address] [place] [phone] Tyrese Rivera NP MRI Pelvis Prostate W WO Contrast 12/10/2024 Telephone [facility] Surgery [address] [place] [address] [place] [phone] Ofe Schuster, RMA 12/10/2024 Telephone [facility] Surgery [address] [place] [phone] Kamila Marquez 12/05/2024 4:50 PM CDT - 12/05/2024 11:59 PM CDT Hospital Encounter [facility] MRI [address] [place] [address] Elevated PSA Discharge Disposition: Discharge to home or self care 10/03/2024 2:45 PM CDT Lab [facility] Office Building [address] [place] [id number] Benign prostatic hyperplasia with incomplete bladder emptying 10/03/2024 2:00 PM CDT Office Visit [facility] Surgery [address] [place] [phone] Tyrese Rivera, EZEKIEL Elevated PSA (Primary Dx); Benign prostatic hyperplasia with incomplete bladder emptying from Last 3 Months Immunizations Immunization Administration Dates Next Due Influenza, Unspecified 03/01/2024(Deferr ed: Patient Refused),07/17/2023(Deferred: Patient Refused),03/13/2023(Deferred: Patient Refused),01/20/2023(Deferred: Patient Refused),01/20/2023(Deferred: Patient Refused),01/03/2022(Deferred: Patient Refused),04/13/2021(Deferred: Patient Refused),03/13/2021(Deferred: Patient Refused),03/13/2020(Deferred: Patient Refused),01/20/2020(Deferred: Patient Refused) Pneumococcal Conjugate PCV 13 05/16/2019 Pneumococcal Polysaccharide PPV23 11/23/2020 TD Preservative Free 01/09/2001 Tdap 09/07/2016 ZOSTER Recombinant 05/23/2022,03/18/2022 Surgical History Surgery Date Site/Laterality Comments COLONOSCOPY 03/13/2016 - 03/12/2017 CARDIAC CATHETERIZATION 10/11/2021 - 11/10/2021 see epic for report Medical History Medical History Date Comments Diabetes mellitus Ear problems Hypertension High cholesterol HL (hearing loss) A-fib (HCC) PONV (postoperative nausea and vomiting) Type 2 diabetes mellitus Enlarged prostate Obesity Colon polyp Family History Medical History Relation Name Comments Thyroid disease Brother Prostate cancer Maternal Grandfather Relation Name Status Comments Brother Father Maternal Grandfather Mother Alive Social History Tobacco Use Types Packs/Day Years Used Date Smoking Tobacco: Never Smokeless Tobacco: Never Tobacco Cessation:Counseling Given: Not Answered Alcohol Use Standard Drinks/Week Comments Yes 0 [...] on file Legal Sex Male 12:26 AM HAT MENDER Gender Identity Not on file Sexual Orientation Not on file 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 Not on file Not on file Obstetrics History Last Filed Vital Signs Vital Sign Reading Time Taken Comments Blood Pressure 118/78 08/30/2024 6:57 AM CDT Pulse 92 08/30/2024 6:57 AM CDT Temperature 36.1 C (96.9 F) 07/01/2024 8:38 AM CDT Respiratory Rate 16 07/01/2024 8:38 AM CDT Oxygen Saturation 97% 08/30/2024 6:57 AM CDT Inhaled Oxygen Concentration - - Weight 122.5 kg (270 lb) 12/05/2024 5:21 PM CDT Height 177.8 cm (5' 10) 12/05/2024 5:21 PM CDT Body Mass Index 38.74 12/05/2024 5:21 PM CDT Plan of Treatment Upcoming Encounters Date Type Department Care Team (Late st Contact Info) Description 05/01/2025 9:30 AM HAT MENDER Hospital Encounter [facility] GI Lab [address] [place] [address] Gabbie Sellers MD [address] [place] [phone] 05/01/2025 9:30 AM HAT MENDER - 05/01/2025 10:00 AM HAT MENDER Surgery [facility] GI Lab [address] [place] [phone] Gabbie Sellers MD [address] [place] [phone] COLONOSCOPY Scheduled Procedures Name Priority Associated Diagnoses Date/Ti me COLONOSCOPY hx of polyps 05/01/2025 9:30 AM HAT MENDER Health Maintenance Due Date Last Done Comments Hepatitis B Screening 1973 Foot Exam 05/15/2020 05/16/2019 Dilated Eye Exam 04/06/2024 04/06/2023, 08/03/2020 Covid-19 Vaccine (2024-2 6 season) 2024 07/12/2020, 06/24/2020, 06/07/2020 Influenza Vaccine (#1) 2024 Hemoglobin A1C 02/22/2025 08/23/2024, 10/2023, 04/06/2023, Additional history exists Fall Risk Assessment 03/01/2025 03/01/2024, 07/17/2023, 01/20/2023, Additional history exists Well Visit 65+ 03/01/2025 03/01/2024, 01/11, 01/03/2022, Additional history exists Colon Cancer Screening-Colonoscopy 04/11/2025 04/11/2023, 12/14/2016 Albumin Creatinine Ratio, Urine 08/23/2025 08/23/2024, 03/08/2024, 03/01/2024, Additional history exists Lipid Panel 08/23/2025 08/23/2024, 02/11, 07/22/2022, Additional history exists eGFR 08/23/2025 08/23/2024, 03/14, 09/01/2022, Additional history exists Depression Screening 08/30/2025 08/30/2024, 03/01/2024, 07/17/2023, Additional history exists DTaP/Tdap/Td Vaccine (2 - Td or Tdap) 09/07/2026 09/07/2016, 01/09/2001 Pneumococcal vaccine 65+ Completed 11/23/2020, 07/2019 Zoster Vaccine Completed 05/23/2022, 03/18/2022 Colon Cancer Screening-CT Colonography Discontinued 04/11/2023, 12/14/2016 Colon Cancer Screening-DNA Stool Discontinued 04/11/19, 12/14/2016 Colon Cancer Screening-FIT Discontinued 04/11/2023, Colon Cancer Screening-Sigmoidoscopy Discontinued 04/11/2023, 12/14/2016 Hepatitis C Screening Completed 09/09/2024 Prostate Cancer Screening-PSA Discontinued , 01/24/2020, 12/05/2018, Additional history exists Medical Devices Implanted Type Area Concept Artist Device Identifier Shelf Expiration Date Model / Serial / Lot [employer] Angio-Seal Vip 6fr Closere Device [id number] - [id number] Implanted:Qty: 1 on 11/04/2021 by Zach Adame MD at [facility] [employer] 06/10/2022 [id number] / / [id number] Procedures Procedure Name Priority Date/Time Associated Diagnosis Comments MRI PELVIS PROSTATE W WO CONTRAST Schedule Routine, Read Routine (OP Routine) 12/05/2024 6:37 PM CDT Elevated PSA PSA DIAGNOSTIC Routine 10/03/2024 2:53 PM CDT Benign prostatic hyperplasia with incomplete bladder emptying MEASURE POST VOID RESIDUAL Routine 10/03/2024 1:53 PM CDT Benign prostatic hyperplasia with incomplete bladder emptying POCT URINALYSIS DIPSTICK Routine 10/03/2024 1:53 PM CDT Benign prostatic hyperplasia with incomplete bladder emptying HEPATITIS PANEL, ACUTE Routine 09/09/2024 10:03 AM CDT Elevated bilirubin ALBUMIN CREATININE RATIO, URINE Routine 08/23/2024 10:35 AM CDT Type 2 diabetes mellitus with hyperlipidemia (HCC) Medicare annual wellness visit, subsequent COMPREHENSIVE METABOLIC PANEL Routine 08/23/2024 10:33 AM CDT Type 2 diabetes mellitus with hyperlipidemia (HCC) Medicare annual wellness visit, subsequent HEMOGLOBIN A1C Routine 08/23/2024 10:33 AM CDT Type 2 diabetes mellitus with hyperlipidemia (HCC) Medicare annual wellness visit, subsequent LIPID PANEL Routine 08/23/2024 10:33 AM CDT Type 2 diabetes mellitus with hyperlipidemia (HCC) Medicare annual wellness visit, subsequent COLONOSCOPY 04/11/2023 9:23 AM HAT MENDER DIABETES EYE EXAM Routine 04/06/2023 1:51 PM HAT MENDER from Last 3 Months or Most Recently Relevant to Health Maintenance Results * MRI Pelvis Prostate W WO Contrast (12/05/2024 6:37 PM CDT) Anatomical Region Laterality Modality Body N/A Magnetic Resonan ce 12/06/2024 1:05 PM CDT Narrative 12/06/2024 1:37 PM CDT EXAM DESCRIPTION: MRI PELVIS PROSTATE W WO CONTRAST REASON FOR STUDY: Prostate cancer suspected PSA 13.2 September TECHNIQUE: MRI of the pelvis performed without and with intravenous contrast according to the prostate protocol. All images stored on PACS. CONTRAST TYPE/DOSE: 20mL of GADOTERATE MEGLUMINE 0.5 MMOL/ML INTRAVENOUS SOLUTION (SO) injected via intravenous COMPARISON: None correlated with recent clinic notes and biopsy results if available. FINDINGS: PROSTATE: Size: 4.4 x 5.3 x 5.1 cm. Volume: 62.8 cc. PSA: 13 Ng/mL. PSA density: 0.21 Ng/ml/cc. TRANSITIONAL ZONE: Lesion: 1 Side: Left Zone: Transitional Craniocaudal: [place]/midgland Location: At the junction of the anterior and posterior zone. Banuelos images: Series 701 image 31; series 1005 image 20; series 1101 image 16) Size: 1.5 x 1.0 cm T2WI score: 3 DWI score: 3 DCE: None Overall PI-RADS v2.1 assessment: 3 PERIPHERAL ZONE: Lesion: 2 Side: Midline Zone: Peripheral Craniocaudal: [place]/apex Location: Posteromedial Banuelos images: Series 701 image 31; series 1005 image 21 Size: 8 mm Extraprostatic extension: - Tumor contact length with prostate margin: 8 mm - Margin bulge/irregularity: No - Rectoprostatic angle obliteration: No - Neurovascular bundle asymmetry: No - Gross extraprostatic extension: No T2WI score: 3 DWI score: 3 DCE: None Overall PI-RADS v2.1 assessment: 3 Lesion: 3 Side: Right Zone: Peripheral Craniocaudal: [place] Location: Posterolateral Banuelos images: Series 701, image 20; series 1005 image 26; series 1004 image 10 Size: 7 mm Extraprostatic extension: None - Tumor contact length with prostate margin: None T2WI score: 4 DWI score: 4 DCE: No Overall PI-RADS v2.1 assessment: 4 SEMINAL VESICLES: Normal. NEUROVASCULAR BUNDLE: Normal. LYMPH NODES: No pathologically enlarged lymph nodes. URINARY: Mild trabeculation of the urinary bladder wall. GI: Colonic diverticulosis MUSCULOSKELETAL: No suspicious osseous lesions. OTHER: Incompletely imaged small hydroceles. IMPRESSION: 1. Lesion in the left transitional zone at the junction of the anterior and posterior zone at the mid gland/apex measuring up to 1.5 cm. PIRADS 3: Intermediate Suspicion. 2. Lesion in the midline peripheral zone at the mid gland/apex measuring up to 8 mm. PIRADS 3: Intermediate Suspicion. 3. Lesion in the right peripheral zone at the apex measuring up to 7 mm. PIRADS 4: High Suspicion. THIS IS AN ELECTRONICALLY VERIFIED FINAL REPORT 12/06/2024 1:37 PM - Electronically signed by Weston Silva M.D. AM T: Report ID: [id number] Reading Location: [id number] Procedure Note Weston Silva MD - 12/06/2024 EXAM DESCRIPTION: MRI PELVIS PROSTATE W WO CONTRAST REASON FOR STUDY: Prostate cancer suspected PSA 13.2 September TECHNIQUE: MRI of the pelvis performed without and with intravenous contrast according to the prostate protocol. All images stored on PACS. CONTRAST TYPE/DOSE: 20mL of GADOTERATE MEGLUMINE 0.5 MMOL/ML INTRAVENOUS SOLUTION (SO) injected via intravenous COMPARISON: None correlated with recent clinic notes and biopsy resultsif available. FINDINGS: PROSTATE: Size: 4.4 x 5.3 x 5.1 cm. Volume: 62.8 cc.PSA: 13 Ng/mL. PSA density: 0.21 Ng/ml/cc. TRANSITIONAL ZONE: Lesion: 1 Side: Left Zone: Transitional Craniocaudal: [place]/midgland Location: At the junction of the anterior and posterior zone. Banuelos images: Series 701 image 31; series 1005 image 20; series 1101 image16) Size: 1.5 x 1.0 cm T2WI score: 3 DWI score: 3 DCE: None Overall PI-RADS v2.1 assessment: 3 PERIPHERAL ZONE: Lesion: 2 Side: Midline Zone: Peripheral Craniocaudal: Midgland/apex Location: Posteromedial Banuelos images: Series 701 image 31; series 1005 image 21 Size: 8 mm Extraprostatic extension: - Tumor contact length with prostate margin: 8 mm - Margin bulge/irregularity: No - Rectoprostatic angle obliteration: No - Neurovascular bundle asymmetry: No - Gross extraprostatic extension: No T2WI score: 3 DWI score: 3 DCE: None Overall PI-RADS v2.1 assessment: 3 Lesion: 3 Side: Right Zone: Peripheral Craniocaudal: [place] Location: Posterolateral Banuelos images: Series 701, image 20; series 1005 image 26; series 1004 image10 Size: 7 mm Extraprostatic extension: None - Tumor contact length with prostate margin: None T2WI score: 4 DWI score: 4 DCE: No Overall PI-RADS v2.1 assessment: 4 SEMINAL VESICLES: Normal. NEUROVASCULAR BUNDLE: Normal. LYMPH NODES: No pathologically enlarged lymph nodes. URINARY: Mild trabeculation of the urinary bladder wall. GI: Colonic diverticulosis MUSCULOSKELETAL: No suspicious osseous lesions. OTHER: Incompletely imaged small hydroceles. IMPRESSION: 1. Lesion in the left transitional zone at the junction ofthe anterior and posterior zone at the mid gland/apex measuring up to 1.5 cm. PIRADS 3: Intermediate Suspicion. 2. Lesion in the midline peripheral zone at the mid gland/apex measuringup to 8 mm. PIRADS 3: Intermediate Suspicion. 3. Lesion in the right peripheral zone at the apex measuring up to 7 mm. PIRADS 4: High Suspicion. THIS IS AN ELECTRONICALLY VERIFIED FINAL REPORT 12/06/2024 1:37 PM - Electronically signed by Weston Silva M.D. AM T: Report ID: [id number] Reading Location: [id number] us Tyrese Rivera FINISHER POLISHER IMG MRI PROCEDURES Final Resu lt * (ABNORMAL) PSA diagnostic (10/03/2024 2:53 PM CDT) PSA-Total 13.20(H) <=6.20 ng/mL Comment: Interpretive Data AGE SEX REFERENCE INTERVAL 0 minutes-150 years Female None 0 minutes-49 years Male None 50-59 years Male 0-3.90 60-69 years Male 0-5.40 70-79 years Male 0-6.20 80-150 years Male 0-6.20 The Ronnie PSA Total assay procedure was used. Results from different manufacturers or methods may not be comparable. Serial testing should be performed using the same method. Current interpretive data last revised 21. Testing performed by: [facility], [address] [place] [address]., [id number] Blood 10/03/2024 2:53 PM CDT 10/03/2024 3:56 PM CDT us Tyrese Rivera FINISHER POLISHER LAB BLOOD ORDERABLES Final Re sult [facility] [address] [facility] [place] [address] * Measure post void residual (10/03/2024 1:53 PM CDT) Narrative Carla Rodriguez, RMA - 10/03/2024 1:53 PM CDT Measurement of Post Void Residual urine and/or bladder capacity PVR = 78ml Tyrese Rivera FINISHER POLISHER NURSING ASSESSMENTS Final Res ult * (ABNORMAL) POCT urinalysis dipstick (10/03/2024 1:53 PM CDT) Color, Urine, POC Yellow Clarity, ur, POC Clear Clear Glucose, ur, POC 3+(A) Negative Bilirubin, ur, POC Negative Negative Ketones, ur, POC Negative Negative Specific [place], POC 1.015 1.003 - 1.030 Blood, ur, POC Negative Negative pH, ur, POC 5.5 5.0 - 8.0 Protein, ur, POC Negative Negative Urobilinogen, urine, POC 0.2 0.2 - 1.0 mg/dL Nitrite, ur, POC Negative Negative Leukocytes, ur, POC Negative Negative Lot Number 0 Urine 10/03/2024 1:53 PM CDT us Tyrese Rivera FINISHER POLISHER POINT OF CARE TEST ORDERABLES Final Result * Hepatitis panel, acute Blood (09/09/2024 10:03 AM CDT) Pathologist [facility] Hep A IgM NON-REACTI VE NON-REACT DIANN [facility] Comment: For additional information, please refer to http://[email or web address].FlatBurger/faq/HFB802 (This link is being provided for informational/ educational purposes only.) HepBsAg NON-REACTI VE NON-REACT DIANN [facility] Comment: For additional information, please refer to http://Perosphere.Scoutzie.FlatBurger/faq/DVA645 (This link is being provided for informational/ educational purposes only.) Hep B core IgM NON-REACTI VE NON-REACT DIANN [facility] Comment: For additional information, please refer to http://Perosphere.Scoutzie.FlatBurger/faq/ZDX722 (This link is being provided for informational/ educational purposes only.) Hep C Ab NON-REACTI VE NON-REACT DIANN [facility] Comment: HCV antibody was non-reactive. There is no laboratory evidence of HCV infection. In most cases, no further action is required. However, if recent HCV exposure is suspected, a test for HCV RNA (test code 54092) is suggested. For additional information please refer to http://education.[employer]/faq/XSH81y4 (This link is being provided for informational/ educational purposes only.) Blood 09/09/2024 10:0 3 AM CDT 09/09/2024 10:04 AM CDT Narrative [facility] - 09/10/2024 8:04 AM CDT FASTING:NO FASTING: NO Zenia MAYA LAB MICROBIOLOGY - GENERAL ORDERABLES Final Result Performing Organization Address [facility] Co de Phone Number [facility] [address] [place] [address] * Albumin Creatinine Ratio, Urine (08/23/2024 10:35 AM CDT) Pathologist [facility] Creatinine, ur 78 20 - 320 mg/dL [facility] Microalbumin, ur 0.7 See Note: mg/dL [facility] Comment: Reference Range: Reference Range Not established Microalbumin/creat ratio 9 <30 mg/g creat [facility] Comment: The ADA defines abnormalities in albumin excretion as follows: Albuminuria Category Result (mg/g creatinine) Normal to Mildly increased <30 Moderately increased 30-299 Severely increased > OR = 300 The ADA recommends that at least two of three specimens collected within a 3-6 month period be abnormal before considering a patient to be within a diagnostic category. Urine 08/23/2024 10:3 5 AM CDT 08/23/2024 10:35 AM CDT Narrative [facility] - 08/24/2024 3:11 AM CDT FASTING:NO FASTING: NO Zenia MAYA LAB URINE ORDERABLES Final Result Performing Organization Address [facility]/ZIP Co de Phone Number [facility] [address] [address] * (ABNORMAL) Hemoglobin A1c (08/23/2024 10:33 AM CDT) Hgb A1C 7.7(H) <5.7 % of total Hgb [facility] Comment: For someone without known diabetes, a hemoglobin A1c value of 6.5% or greater indicates that they may have diabetes and this should be confirmed with a follow-up test. For someone with known diabetes, a value <7% indicates that their diabetes is well controlled and a value greater than or equal to 7% indicates suboptimal control. A1c targets should be individualized based on duration of diabetes, age, comorbid conditions, and other considerations. Currently, no consensus exists regarding use of hemoglobin A1c for diagnosis of diabetes for children. Blood 08/23/2024 10:3 3 AM CDT 08/23/2024 10:34 AM CDT [facility] - 08/23/2024 8:01 PM CDT FASTING:NO FASTING: NO Zenia MAYA LAB BLOOD ORDERABLES Final Result [facility] [address] [place] [address] * Lipid panel (08/23/2024 10:33 AM CDT) [facility] Cholesterol 103 <200 mg/dL [facility] ad[facility] HDL 49 > OR = 40 mg/dL [facility] angie Schwarz Triglycerides 108 <150 mg/dL [facility] angie Schwarz LDL 35 mg/dL (calc) [facility] ad[facility] Comment: Reference range: <100 Desirable range <100 mg/dL for primary prevention; <70 mg/dL for patients with CHD or diabetic patients with > or = 2 CHD risk factors. LDL-C is now calculated using the Imelda calculation, which is a validated novel method providing better accuracy than the Friedewald equation in the estimation of LDL-C. Trell CURRY et al. DANDRE. 2013;310(19): 8822-6766 (http://education.Zwamy.FlatBurger/faq/TPD740) Chol/HDL ratio 2.1 <5.0 (calc) [facility] angie Schwarz Non-HDL, (LDL+VLDL) 54 <130 mg/dL (calc) [facility] Comment: For patients with diabetes plus 1 major ASCVD risk factor, treating to a non-HDL-C goal of <100 mg/dL (LDL-C of <70 mg/dL) is considered a therapeutic option. Blood 08/23/2024 10:3 3 AM CDT 08/23/2024 10:34 AM CDT Narrative [facility] - 08/23/2024 8:01 PM CDT FASTING:NO FASTING: NO Zenia MAYA LAB BLOOD ORDERABLES Final Result [facility] [address] [place] [address] * (ABNORMAL) Comprehensive metabolic panel (08/23/2024 10:33 AM CDT) Glucose 275(H) 65 - 99 mg/dL Jessica The Real[facility]ette Schwarz Comment: Fasting reference interval For someone without known diabetes, a glucose value >125 mg/dL indicates that they may have diabetes and this should be confirmed with a follow-up test. BUN 19 7 - 25 mg/dL [facility] angie Schwarz Creatinine 1.20 0.70 - 1.28 mg/dL [facility] angie Schwarz eGFR 65 > OR = 60 mL/min/1.7 3m2 [facility] angie Schwarz BUN/creat ratio SEE NOTE: 6 - 22 (calc) Jessica The RealRealLynette Schwarz Comment: Not Reported: BUN and Creatinine are within reference range. Sodium 137 135 - 146 mmol/L [facility] angie Schwarz Potassium, pl 4.2 3.5 - 5.3 mmol/L [facility] angie Schwarz Chloride 103 98 - 110 mmol/L [facility] angie Schwarz CO2 25 20 - 32 mmol/L [facility] angie Schwarz Calcium 9.5 8.6 - 10.3 mg/dL [facility] angie Schwarz Protein, sr 6.7 6.1 - 8.1 g/dL [facility] agnie Schwarz Albumin 4.0 3.6 - 5.1 g/dL [facility] GLOBULIN 2.7 1.9 - 3.7 g/dL (calc) [facility] Alb/glob ratio 1.5 1.0 - 2.5 (calc) [facility] Bilirubin, total 2.0(H) 0.2 - 1.2 mg/dL [facility] Alk phos 69 35 - 144 U/L [facility] AST 19 10 - 35 U/L [facility] ALT (SGPT) 22 9 - 46 U/L [facility] Blood 08/23/2024 10:3 3 AM CDT 08/23/2024 10:34 AM CDT Narrative [facility] - 08/23/2024 8:01 PM CDT FASTING:NO FASTING: NO us Zenia MAYA LAB BLOOD ORDERABLES Final Result [facility] [address] [place] [address] * (ABNORMAL) Colonoscopy (04/11/2023 9:23 AM HAT MENDER) Anatomical Region Laterality Modality Other Narrative Procedure Note Gabbie Sellers MD - 04/11/2023 9:23 AM CST [facility] Patient Name: Ted Camacho Procedure Date: 04/11/2023 9:23 AM Date of : 1955 Admit Type: Outpatient Age: 67 Gender: Male Attending MD: Gabbie Sellers M.D. Room: [facility] END[facility]COPY ROOM 05 Note Status: Finalized Procedure: Colonoscopy Indications: High risk colon cancer surveillance: Personalhistory of colonic polyps Referring MD: Providers: Gabbie Sellers M.D. Medicines: See the Anesthesia note for documentation of the administered medications Complications: No immediate complications. Estimated Blood Loss: Estimated blood loss was minimal. Procedure: The benefits, risks and alternatives of theprocedure and sedation were discussed and informed consentwas obtained. All questions were answered. Please referto the signed informed consent document in the medical record. The scope was passed under direct vision.The CF-H180AL colonoscope was introduced through theanus and advanced to the cecum, identified byappendiceal orifice and ileocecal valve. The colonoscopy was performed without difficulty. The patient tolerated the procedure well. The quality of the bowel preparation was adequate to identify polyps 6 mmand larger in size. Findings: The perianal and digital rectal examinations were normal. Two polyps were found in the proximal ascending colon. The polypswere 10 to 25 mm in size. These polyps were removed with a hot snare. Resection and retrieval were complete. To prevent bleeding post-intervention, one hemostatic clip was successfully placed on the larger polyp base. There was no bleeding at the end of theprocedure. Diverticula were found in the colon. Internal hemorrhoids were found during retroflexion. The hemorrhoids were small. Impression: - Two 10 to 25 mm polyps in the proximal ascending colon, removed with a hot snare. Resected and retrieved. Clip was placed. - Diverticulosis. - Internal hemorrhoids. Recommendation: - Repeat colonoscopy date to be determined after pending pathology results are reviewed for surveillance. - Resume Xarelto (rivaroxaban) at prior dose in 3days. Gabbie Sellers M.D. Gabbie Sellers M.D. 04/11/2023 9:59:12 AM . Number of Addenda: 0 Note Initiated On: 04/11/2023 9:23 AM Recognized by the [employer] for promoting quality in endoscopy Gabbie Sellers MD ENDOSCOPY PROCEDURES Edited Resu lt - Final * DIABETES EYE EXAM (04/06/2023 1:51 PM HAT MENDER) SCRIBED DIABETIC DILATED EYE EXAM Normal Historical Provider HEALTH MAINTENANCE Edited Result - Final from Last 3 Months or Most Recently Relevant to Health Maintenance Insurance MEDICARE [facility] MEDICARE SUPPLEMENT MEDICARE [facility] MEDICARE SUPPLEMENT Advance Directives For more information, please contact: [phone] * Full Code (Latest Code Status on File) Date Activated Date Inactivated Comments 11/04/2021 12:17 PM 11/04/2021 5:20 PM Care Teams Housekeeper Child Care Relationship Specialty Start Date End Date Zenia Ruelas PA [address] [facility] [address] [place] [address] PCP - General Internal Medicine 09/03/18 Jackie Golden MD [address] [facility] [address] [address] [address] [facility] [address] [place] [address] Referring Physician Internal Medicine 11/10/18 Raj [place] [address] Consulting Physician Otolaryngology 07/08/22
--- OUTSIDE RECORDS SUMMARY | 2024-12-20 08:25 | XMS_ITS | Clinical Summary ---
Author Organization [facility] Address [address] [facility] [place] [address] Care Team Providers Care Trolley Car Overhauler Name Role Phone Gaby Herbert MD Primary Care Provider [phone] Source Comments [facility],non-owned Affiliates and Associated Physician Practices is amultiple site organization consisting of ambulatory clinics and hospital sitesin [place], [place], [place] and [place]. This disclosure is being madepursuant to the Care Everywhere program and may not contain all information available regarding this patient. Last updated 17.[facility] Allergies No known active allergies Medications * Be aware that medications may not be up to date on this document. Alwaysverify current medications with the patient. METFORMIN HCL PO Act santos GLYBURIDE PO Active Insulin Aspart (NOVOLOG SC) Active LOSARTAN POTASSIUM PO Active TERBINAFINE HCL PO Active albuterol HFA (PROAIR HFA) 108 (90 BASE) MCG/ACT inhalerIndicatio ns:Acute bronchitis, unspecified organism Inhale 2 Puffs by mouth every 4 hours as needed for Shortness of Breath, Wheezing or Cough 1 Inhaler 1 6 Active Additional Information Patient not taking.Reported on 08/17/2016 azithromycin (ZITHROMAX) 250 MG tabletIndication s:Abnormal chest sounds Take 2 tablets now, then 1 tablet daily for 4 days. 6 Tab 6 Active Additional Information Patient not taking.Reported on 08/17/2016 benzonatate (TESSALON) 100 MG capsule Take 1 Cap by mouth 3 times daily as needed for Cough 20 Cap 6 Active Additional Information Patient not taking.Reported on 08/17/2016 predniSONE (DELTASONE) 10 MG tabletIndication s:Allergic contact dermatitis due to plants, except food 5 tab PO QD x3 day,then 4 tab PO QD x3 day,then 3 tab PO QD x3 day,then 2 tab PO QD x3 day,then 1 tab PO QD x3 days,Take with food 45 Tab 7 Active Social History Tobacco Use Types Packs/Day Years Used Date Smoking Tobacco: Never Sex and Gender Information Value Date Recorded Sex Assigned at Not on file Legal Sex Male 9:28 AM CDT Gender Identity Not on file Sexual Orientation Not on file Last Filed Vital Signs Vital Sign Reading Time Taken Comments Blood Pressure 120/78 08/17/2016 8:57 AM CDT Pulse 82 08/17/2016 8:57 AM CDT Temperature 36.8 C (98.2 F) 08/17/2016 8:57 AM CDT Respiratory Rate 20 08/17/2016 8:57 AM CDT Oxygen Saturation 95% 08/17/2016 8:57 AM CDT Inhaled Oxygen Concentration - - Weight 133.8 kg (295 lb) 08/17/2016 8:57 AM CDT Height 179.1 cm (5' 10.5) 08/17/2016 8:57 AM CD T Body Mass Index 41.73 08/17/2016 8:57 AM CDT Plan of Treatment Health Maintenance Due Date Last Done Comments COLOGUARD (AGES 45-75) - COL ON CA SCREENING 1955 COLON MONITORING 1955 COLONOSCOPY - COLON CA SCREENING 1955 CT COLONOGRAPHY - COLON CA SCREENING 1955 Colorectal Cancer Screening 1955 FIT - COLON CA SCREENING 1955 FLEX SIG - COLON CA SCREENING 1955 LIPID TESTING 1955 HEPATITIS C SCREENING 05/01/1972 DTAP/TDAP/TD VACCINES (1 - Tdap) 1973 PNEUMOCOCCAL VACCINE 50+ (1 of 1 - PCV) 2004 ZOSTER VACCINE (1 of 2) 2004 DEPRESSION SCREENING 03/13/2024 COVID-19 VACCINE (1 - 2023-2 5 season) 2024 INFLUENZA VACCINE (#1) 2024 Respiratory Syncytial Virus (RSV) Vaccine Pt: or over 60 yrs (1 - 1-dose 75+ series) 2029 HEPATITIS B VACCINE Aged Out No longe r eligible based on patient's age to complete this topic HIB VACCINE Aged Out No longer eligi ble based on patient's age to complete this topic HPV VACCINE Aged Out No longer eligi ble based on patient's age to complete this topic MENINGOCOCCAL (Group B) VACC INE SHARED DECISION-MAKING Aged Out No longer eligibl e based on patient's age to complete this topic MENINGOCOCCAL GROUPS A/C/Y/W VACCINE Aged Out No longer eligible b ased on patient's age to complete this topic Insurance Care Teams Trolley Car Overhauler Relationship Specialty Start Date End Date Gaby Herbert MD PCP - General Family Medicine 01/15/16
--- OUTSIDE RECORDS SUMMARY | 2024-12-20 08:25 | XMS_ITS | Clinical Summary ---
Author Organization [facility] Address [address] [place] [address] Care Team Providers Care Predatory Animal Hunter Name Role Phone Unavailable Primary Care Provider Unavailabl e Social History Tobacco Use Types Packs/Day Years Used Date Smoking Tobacco: Never Assessed Sex and Gender Information Value Date Recorded Sex Assigned at Not on file Legal Sex Male 12:59 PM MASTER GLAZIER Gender Identity Not on file Sexual Orientation Not on file Plan of Treatment Health Maintenance Due Date Last Done Comments Colorectal Cancer Screening Colonoscopy (10 Years) 1955 Hepatitis C 1972 DTaP, Tdap and Td Vaccines ( 1 - Tdap) 1973 Pneumococcal Vaccine: 50+ Ye ars (1 of 1 - PCV) 2004 Zoster Vaccines (1 of 2) 2004 COVID-19 Vaccine (1 - 2023-2 5 season) 2024 Influenza Adult (#1) 2024 RSV Immunization or 60+ Years (1 - 1-dose 75+ series) 2029 Meningococcal B Vaccine Aged Out No l onger eligible based on patient's age to complete this topic Meningococcal Vaccine Aged Out No eric jonna eligible based on patient's age to complete this topic RSV Immunizations Under 20 Months Aged Out No longer eligible based on patient's age to complete this topic
--- OUTSIDE RECORDS SUMMARY | 2024-12-20 08:25 | XMS_ITS | Data Portability ---
Author Organization [facility] Address [address] [place] [address] Assessment Encounter Date Assessment Date Assessment LastModified by Organization Details LastModified Time 01/19/2024 01/19/2024 Longstanding persistent atrial fibrillation with history of left atrial appendage thrombus on last transesophageal echocardiogram in August 2022 Chronic combined systolic and diastolic heart failure with subsequent normalization of LVEF, currently heart failure with preserved ejection fraction secondary to nonischemic cardiomyopathy with cardiac catheterization in October 2021 revealing mild intimal disease in the distal RCA distribution Type 2 diabetes monitored by endocrinology, Hemoglobin A1c 7.9 in March 2023 Anticoagulation management Preoperative cardiac risk stratification for low cardiac risk dental surgical procedure Hypertension Morbid obesity Mixed hyperlipidemia Plan: Atrial fibrillation rate controledl and continue metoprolol succinate 25 mg daily. Continue current medical therapy for cardiomyopathy with current doses of metoprolol succinate 25 mg daily, losartan 25 mg daily and Jardiance which he is on 25 mg secondary to his diabetes. Low-sodium diet, medical therapy with metoprolol and losartan and ambulatory blood pressure monitoring reinforced for cardiovascular/cer ebrovascular/renal risk reduction. Given cardiovascular risk reduction benefits with history of CHF, weight management and glycemic management, we will attempt insurance prior authorization for Ozempic to be started at 0.5 mg subcutaneous weekly. I have strongly recommended that he contact his endocrinology team for deescalation of his insulin dosage if indicated once he starts taking Ozempic. Reviewed rationale, benefits, risks, alternatives of continued anticoagulation with rivaroxaban and we will continue after shared decision-making dosed at 20 mg daily. Low cardiac risk to proceed with planned dental surgical procedure with low risk of CVA with holding rivaroxaban for 24-48 hours prior and recommendations that resume as soon as possible postprocedure. Diet/exercise encouraged for weight management. Continue current dose of rosuvastatin 10 mg daily for management of mixed hyperlipidemia and we will obtain CBC, CMP, lipid panel and thyroid studies prior to a routine follow-up visit in 4 months' time [email or web address] Not available 01/19/2024 11:01:33 Plan of Treatment Reminders Order Date Submit Date Provider Last Modified By Organization Details Last Modified Time Details Appointments ANY 15 2024 12:15P Madelyn Aguilar MD Not available Not available Not available Lab TSH, serum or plasma 2024 025 [facility], [address], [place], [address], 11/27/2024 11:58:40 CBC 2024 025 [facility], [address], [place], [address], 11/27/2024 11:58:40 lipid panel, serum 2024 025 [facility], [address], [place], [address], 11/27/2024 11:27:29 CMP, serum or plasma 2024 025 [facility], [address], [place], [address], 11/27/2024 11:58:40 HbA1c (hemoglob in A1c), blood [address] [facility], [address], [place], [address], 12/04/2024 13:15:06 BMP, serum or plasma [email or web address], [address], [place], [address], 06/10/2024 09:58:58 CBC 2023 024 [facility], [address], [place], [address], 02/06/2024 12:46:33 lipid panel, serum 2023 024 [facility], [address], [place], [address], 02/01/2024 09:48:56 TSH, serum or plasma 2023 024 [facility], [address], [place], [address], 02/06/2024 12:46:33 hepatic function panel, serum 2023 [facility], [address], [place], [address], 02/06/2024 12:46:33 Referral None recorded. Procedures None recorded. Surgeries None recorded. Imaging electroca rdiogram 2023 [email or web address] In-Office Order, Internal Use Only DO Not Attach Compendium DO Not Attach Compendium, Do Not Delete/merge, [id number] 01/19/2024 10:58:48 Medication Orders Toprol XL 25 mg tablet,ex tended release 2024 025 [id number], [address], [place], [id number], 05/31/2024 10:16:21 Lasix 20 mg tablet 2024 025 [facility] #75347, [address] [facility], [place], [place], [id number], 05/31/2024 10:16:20 Xarelto 20 mg tablet 2024 025 [facility] #95125, [address], [place], [id number], 05/31/2024 10:16:20 Toprol XL 25 mg tablet,ex tended release 2023 024 [email or web address] [facility] #85301, [address] [facility], [place], [place], [id number], 01/19/2024 10:58:46 losartan 25 mg tablet 2023 024 [email or web address] [facility] #90387, [address], [place], [id number], 01/19/2024 10:58:46 Ozempic 0.25 mg or 0.5 mg (2 mg/1.5 mL) subcutane ous pen injector 2023 025 [facility] #36576, [address], [place], [id number], 05/31/2024 09:54:25 Jardiance 25 mg tablet [address], [address] [place] [address], [address], 01/19/2024 10:58:46 Xarelto 20 mg tablet [address], [address], 01/19/2024 10:58:46 Patient TargetsNo targets recorded. Patient Instructions Encounter Date Encounter Id Patient Instructions Last Modified By Organization Details Last Modified Time 01/19/2024 [id number] A healthy lifestyle: care instructions [email or web address] Not available 01/19/2024 11:01:32 05/31/2024 [id number] A healthy lifestyle: care instructions [email or web address] Not available 05/31/2024 10:16:14 Reason for Referral None Reported. Results Created Date Observation Date Name Description Value Unit Range Abnormal Flag Note LastModifiedBy Organization Detail LastModifiedTime 01/16/20 24 09/01/2022 ivanna singh am No observ ation record ed. [email or web address] Not Available 2023 16:15:57 01/19/20 24 01/19/2024 ivanna wilkins diogr am No observ ation record ed. BLAISE In-Office Order Internal Use Only DO Not Attach Compendium DO Not Attach Compendium, Do Not Delete/merge, [id number] 01/19/2024 11:01:46 01/19/20 24 ivanna singh am No observ ation record ed. [email or web address] Not Available 2023 11:09:22 Result Notes None recorded. Problems Name Problem SNOMED Code Status Onset Date Resolution Date Notes Provider Name and Address Organization Details Recorded Time Morbid obesity 483810877 Active 2024 Eric Aguilar MD Attn: Paty hernandez,[address], [place], [address], [facility] 5 10:12:55 Chronic combined systolic and diastolic heart failure 6116524102064 00 Active 2024 Eric Aguilar MD Attn: Paty hernandez,[address] [facility], [place], [address], [place] [facility] 5 10:12:57 Permanent atrial fibrillatio n 090535329 Active 2024 Eric Aguilar MD Attn: Paty hernandez,[address], [place], [address], [place] [facility] 5 10:12:57 Problem Notes None recorded. Medical Equipment None Reported. Allergies No known drug allergies Medications Name Sig Start Date Stop Date Status Note LastModified by Organization Details LastModified Time metformin 1,000 mg tablet TAKE 1 TABLET BY MOUTH TWICE DAILY WITH MEALS active Not Available Not Available No t Available losartan 25 mg tablet TAKE 1 TABLET BY MOUTH EVERY DAY active Not Available Not Available No t Available mupirocin 2 % topical ointment APPLY TO SPOT ON LOW BACK THREE TIMES DAILY X 10 DAYS 01/18 completed Not Available Not Available Not Available furosemid e 20 mg tablet Take 1 tablet every other day by oral route. active Not Available Not Available No t Available metoprolo l succinate ER 25 mg tablet,ex tended release 24 hr TAKE 1 TABLET BY MOUTH EVERY DAY active Not Available Not Available No t Available methylpre dnisolone 4 mg tablets in a dose pack FOLLOW PACKAGE DIRECTIO NS 01/18 completed Not Available Not Available Not Available metronida zole 0.75 % topical gel APPLY TOPICALL Y TO FACE TWICE DAILY 01/18 completed Not Available Not Available Not Available Ventolin HFA 90 mcg/actua tion aerosol inhaler INHALE 2 PUFFS BY MOUTH EVERY 6 HOURS NEEDED FOR WHEEZING 01/18 completed Not Available Not Available Not Available rosuvasta tin 10 mg tablet active Not Available Not Available Not Available BD Ultra-Fin e Mini Pen Needle 31 gauge x 3/16 USE 4 PEN NEEDLES PER DAY. active Not Available Not Available No t Available BD Ultra-Fin e Short Pen Needle 31 gauge x 5/16 USE WITH INSULIN INJECTIO NS TWICE DAILY active Not Available Not Available No t Available FreeStyle Lite Strips USE 1 EACH DIRECTED TWICE DAILY active Not Available Not Available No t Available Humalog Mix 75-25 KwikPen U-100 insulin 100 unit/mL subcutane ous pen INJECT 20 UNITS BY SUBCUTAN EOUS ROUTE WITH BREAKFAS T AND 20 UNITS WITH DINNER DIRECTED . 05/31 completed Not Available Not Available Not Available Humalog KwikPen (U-100) Insulin 100 unit/mL subcutane ous ADMINIST ER 6 UNITS UNDER THE SKIN THREE TIMES DAILY BEFORE MEALS active Not Available Not Available No t Available Xarelto 20 mg tablet TAKE 1 TABLET BY MOUTH EVERY DAY active Not Available Not Available No t Available Jardiance 25 mg tablet TAKE 1 TABLET BY MOUTH EVERY MORNING active Not Available Not Available No t Available Alexus SoloStar U-300 Insulin 300 unit/mL (1.5 mL) subcutane ous pen ADMINIST ER 30 UNITS UNDER THE SKIN DAILY active on hold due to hypoglyc emia Not Available Not Available Not Available Ozempic 0.25 mg or 0.5 mg (2 mg/1.5 mL) subcutane ous pen injector Inject 0.5 mg by subcutan eous route. 05/31 completed Not Available Not Available Not Available FreeStyle Teresa 2 Sensor kit REPLACE EVERY 14 DAYS active Not Available Not Available No t Available Ozempic 1 mg/dose (4 mg/3 mL) subcutane ous pen injector ADMINIST ER 1 MG UNDER THE SKIN WEEKLY active Not Available Not Available No t Available Ozempic 0.25 mg or 0.5 mg (2 mg/3 mL) subcutane ous pen injector INJECT 0.5 MG UNDER THE SKIN ONCE WEEKLY. active Not Available Not Available No t Available FreeStyle Teresa 3 [place] USE TO MONITOR BLOOD SUGAR active Not Available Not Available No t Available FreeStyle Teresa 3 Plus Sensor device CHANGE EVERY 15 DAYS active Not Available Not Available No t Available Vitals Date Recorded Body weight Body mass index (BMI) Body height Heart rate Oxygen saturation Oxygen saturation in Arterial blood by Pulse oximetry Systolic And Diastolic Provider Name and Address Organization Details Last Updated DateTime 5 542079. 23 g 40.7 kg/m2 177.8 cm 104 /min 97 % 97 % 112/64 mm[Hg] Melanie Gray RN [facility] 5 09:53:31 Date Recorded Heart rate Oxygen saturation Oxygen saturation in Arterial blood by Pulse oximetry Body weight Systolic And Diastolic Provider Name and Address Organization Details Last Updated DateTime 4 78 /min 95 % 95 % 084546. 79 g 110/64 mm[Hg] Melanie Gray RN [facility] 4 10:09:52 Social History Question Answer Notes LastModified by Organizat ion Details LastModified Time Tobacco Smoking Status Never Smoker Melanie Gray RN [facility] 05/31/2024 09:56:27 What Was The Date Of Your Most Recent Tobacco Screening? [facility]20[email or web address] not available 05/31/2024 Sex: Male Functional Status Question Answer Note LastModified by Organization D etails LastModified Time Do you or have you ever used any other forms of tobacco or nicotine? No [facility] Information not available 05/31/2024 Mental Status None recorded. Family History Nothing Reported. Medical History No medical history recorded. Past Encounters Encounter ID Performer Location Encounter Start Date Encounter Closed Date Diagnosis/Indication Diagnosis SNOMED-CT Code Diagnosis ICD10 Code Diagnosis IMO Codes Diagnosis Note [id number] Eric Aguilar MD [facility] [address] [place] [address] 01/19/2024 09:47:17 01/22/2024 08:03:18 Essential hypertension 04394276 I10 Permanent atrial fibrillation 496219507 I48.21 Chronic co mbined systolic and diastolic heart failure 9443372033 43093 I50.42 Preoperati ve cardiovascular examination 012792141 Z01.810 Type 2 christopher betes mellitus without complication 890115666 E11.9 Morbid obesity 004730330 E66.01 [id number] Eric Aguilar MD [facility] [address] [place] [address] 05/31/2024 09:46:53 06/10/2024 12:21:52 Morbid obesity 093562202 E66.01 Diet/exerc ise encouraged . Reports recently being initiated on Ozempic per PCP. Chronic co mbined systolic and diastolic heart failure 0473572144 51006 I50.42 LVEF has normalized . Continue current doses of metoprolol , losartan and Jardiance which he has dose at 25 mg given concomitan t type 2 diabetes. Change furosemide from 20 mg daily to 20 mg every other day given euvolemia and subsequent ly we will change to p.r.n.. Permanent atrial fibrillation 417276740 I48.21 Rate controlled . No symptom awareness. Normal LVEF. Continue uninterrup mita rivaroxaba n given us transesoph ageal echocardio gram showing left atrial appendage thrombus. Reviewed rationale, benefits, risks, alternativ es of anticoagul ation versus repeat ANALY and considerat ion for left atrial appendage occlusion. In the absence of bleeding/ falls, wishes to remain on anticoagul ation which is reasonable . Essential hypertension 88846075 I10 low-sodium diet, ambulatory blood pressure monitoring . Losartan and metoprolol as above. Type 2 christopher betes mellitus without complication 280122223 E11.9 Managed per PCP. Reports recently being initiated on Ozempic. Reviewed cardiovasc ular benefits of GLP 1 receptor agonist. Plan follow-up in 6 months with labs prior. Health Concerns Section Related Observation LastModified by Organization Detai ls LastModified Time None Recorded Concern Status LastModified by Organization Details LastModified Time None Recorded Advance Directives Directive None Recorded Payers Insurance Date Sequence Insurance Name Policy Number Policy Morton Covered Member ID Morton Member ID Guarantor Name 11/29/2024 [place] Ted Camacho [id number] Ted Camacho 11/29/2024 2 [place] [id number] Ted Camacho [id number] Ted Camacho 11/29/2024 1 [place] [facility] Ted Cmaacho [id number] Ted Camacho 01/19/2024 2 [place] Ted Camacho [id number] Ted Camacho Notes Date Note Type Note Provider Name and Address Organization Details Recorded Time 4 text/html Ted Camacho is a 68 y.o. male who presents for ongoing evaluation and management of atrial fibrillation, history of cardiomyopathy, type 2 diabetes, morbid obesity, hypertension. has a history of nonischemic cardiomyopathy with subsequent normalization of LVEF. Persistent atrial fibrillation maintained on rate control strategy due to heavy smoke with pre thrombus noted on transesophageal echocardiogram. Comorbidities include type 2 diabetes, morbid obesity, hypertension, mixed hyperlipidemia Interval history:Requesting anticoagulation hold for dental procedure. Denies chest pain or pressure. Walking half a mile daily. Previously attempted Ozempic which was reportedly denied by insurance. Reports cost concerns with Jardiance and Xarelto. BP optimal. No bleeding diathesis. Labs:04/06/2023: BUN 22, creatinine 1.12, sodium 135, potassium 4.2, hemoglobin A1c 7.9, hemoglobin 17.1, platelets 222Cardiac diagnostics:Twelve lead EKG 01/19/2024: Atrial fibrillation, left anterior fascicular block, nonspecific ST-T changes Transthoracic echocardiogram 08/06/2021:LVEF 55-60%, normal RV function, mild mitral regurgitation, no pulmonary hypertension, no pericardial effusion.Extended Holter monitor 61296:7 days, atrial fibrillation throughout the study duration, average heart rate 91 beats per minute, 2 pauses of 2.0 seconds.Lexiscan pharmacologic stress test, 10/11/2021:Small to moderate-sized partially reversible inferoapical perfusion defect, LVEF 45%Cardiac catheterization, 11/04/2021:Minimal intimal disease in the PDA and PLVTransesophageal echocardiogram August 2022:LVEF 45-50%, heavy smoke with thrombus in the left atrial appendageTransthoracic echocardiogram May 2023:LVEF 55%, mild mitral regurgitation Eric Aguilar MD Attn: Accounting,[address] [place], [address], [facility] 01/19/2024 11:05:12 5 text/html ROS as noted in the HPI Ted Camacho is a 68 y.o. male who presents for ongoing evaluation and management of atrial fibrillation, history of cardiomyopathy, type 2 diabetes, morbid obesity, hypertension. has a history of nonischemic cardiomyopathy with subsequent normalization of LVEF. Persistent atrial fibrillation maintained on rate control strategy due to heavy smoke with pre thrombus noted on transesophageal echocardiogram. Comorbidities include type 2 diabetes, morbid obesity, hypertension, mixed hyperlipidemia Interval history:No new cardiac concerns since last evaluation. Denies chest pain or pressure. No bleeding diatheses on rivaroxaban. No subjective awareness of atrial fibrillation. Initiated on Ozempic per PCP with decreased appetite and overall increased energy levels. BP optimal. Labs:02/01/2024: LDL 45, HDL 51, triglycerides 112, total cholesterol 116, liver and renal function within normal range. 04/06/2023: BUN 22, creatinine 1.12, sodium 135, potassium 4.2, hemoglobin A1c 7.9, hemoglobin 17.1, platelets 222Cardiac diagnostics:Twelve lead EKG 01/19/2024: Atrial fibrillation, left anterior fascicular block, nonspecific ST-T changes Transthoracic echocardiogram 08/06/2021:LVEF 55-60%, normal RV function, mild mitral regurgitation, no pulmonary hypertension, no pericardial effusion.Extended Holter monitor 39007:7 days, atrial fibrillation throughout the study duration, average heart rate 91 beats per minute, 2 pauses of 2.0 seconds.Lexiscan pharmacologic stress test, 10/11/2021:Small to moderate-sized partially reversible inferoapical perfusion defect, LVEF 45%Cardiac catheterization, 11/04/2021:Minimal intimal disease in the PDA and PLVTransesophageal echocardiogram August 2022:LVEF 45-50%, heavy smoke with thrombus in the left atrial appendageTransthoracic echocardiogram May 2023:LVEF 55%, mild mitral regurgitation Eric Aguilar MD Attn: Accounting,[address] [facility], [place], [address], [facility] 05/31/2024 13:44:07
== END 2024-12-20 08:19 | disposition home or self-care (01) ==
PROVIDERS: PCP Physician Assistant; Visit Provider Podiatrist Foot & Ankle Surgery
DX: I73.9 Peripheral vascular disease, unspecified (principal)
CPT/HCPCS: 93923